=== PATIENT | male | born 1955 | race Caucasian/White ===

== ENCOUNTER 2017-04-27 06:25 | Inpatient (IN) | payer OTHER ==
[2017-04-26 09:21] LABS: CHLORIDE,CL 109 mmol/L (98-110); SODIUM,NA 141 mmol/L (136-146)
[2017-04-27] MEDS ORDERED: ceFAZolin 1 GM in Premix Bag 1 BAG IV ONE (07:00)
[2017-04-27] MEDS ORDERED: Lactated Ringers 1,000 ML IV SCH (07:00)
[2017-04-27] MEDS ORDERED: Gentamicin 40 MG/ML 2 ML Vial ONE (07:22)
[2017-04-27] MEDS ORDERED: Lidocaine 2% 5 ML SDV ONE (07:34)
[2017-04-27] MEDS ORDERED: Propofol 200 MG/20 ML SDV ONE ×3 (07:34→10:30)
[2017-04-27] MEDS ORDERED: fentaNYL 100 MCG/2 ML SDV ONE ×2 (07:34→09:44)
[2017-04-27] MEDS ORDERED: Midazolam 1 MG/ML 2 ML SDV ONE (07:34)
[2017-04-27] MEDS ORDERED: Morphine PF 10 MG/10 ML SDV ONE (07:40)
[2017-04-27] MEDS ORDERED: ePHEDrine 50 MG/ML SDV ONE (07:40)
[2017-04-27] MEDS ORDERED: Neostigmine Methylsulfate 1 MG/ML 5 ML Syringe ONE (07:44)
[2017-04-27] MEDS ORDERED: Ondansetron 4 MG/2 ML SDV ONE (07:44)
[2017-04-27] MEDS ORDERED: Rocuronium 10 MG/ML 10 ML Syringe ONE (07:44)
--- NOTE | 2017-04-27 08:07 | PCM.PREANE ---
Preanesthetic Assessment - Procedure Proposed Procedure: Radical prostatectomy - Anesthesia/Transfusion/Family Hx Anesthesia History: Prior Anesthesia Without Reaction Transfusion History: No Prior Transfusion(s) Intubation History: Unknown Additional History: Hemicolectomy in [place] last year with tumor removal.No problems with anesthetic. - Review of Systems General: No Symptoms Pulmonary: Other (smoker) Cardiovascular: No Symptoms Gastrointestinal: Other (abdominal surgery last year; occasional acid stomach since.) Neurological: No Symptoms Other: Reports: None - Physical Assessment NPO Status Date: 04/26/17 NPO Status Time: 23:00 O2 Sat by Pulse Oximetry: 97 Respiratory Rate: 16 Vital Signs: Last Vital Signs Temp 97.7 F 04/27/17 07:00 Pulse 87 04/27/17 07:00 Resp 16 04/27/17 07:00 BP 127/62 04/27/17 07:00 Pulse Ox 97 04/27/17 07:00 Height: 6 ft Weight: 176 lb ASA Class: 2 Mental Status: Alert & Oriented x3 Airway Class: Mallampati = 1 Dentition: Reports: Normal Dentition Thyro-Mental Finger Breadths: 3 Mouth Opening Finger Breadths: 3 ROM/Head Extension: Full Lungs: Clear to Auscultation, Normal Respiratory Effort Cardiovascular: Regular Rate, Regular Rhythm, No Murmurs - Lab Values: Laboratory Last Values WBC 5.56 K/uL (4.0-11.0) 04/26/17 08:40 RBC 4.21 M/uL (4.50-5.90) L 04/26/17 08:40 Hgb 13.6 g/dL (13.0-17.0) 04/26/17 08:40 Hct 39.8 % (38.0-50.0) 04/26/17 08:40 MCV 94.5 fL (80.0-98.0) 04/26/17 08:40 MCH 32.3 pg (27.0-32.0) H 04/26/17 08:40 MCHC 34.2 g/dL (31.0-37.0) 04/26/17 08:40 RDW Std Deviation 45.0 fl (28.0-62.0) 04/26/17 08:40 RDW Coeff of Clint 13 % (11.0-15.0) 04/26/17 08:40 Plt Count 426 K/uL (150-400) H 04/26/17 08:40 MPV 8.90 fL (7.40-12.00) 04/26/17 08:40 Neut % (Auto) 61.3 % (48.0-80.0) 04/26/17 08:40 Lymph % (Auto) 26.1 % (16.0-40.0) 04/26/17 08:40 Towns % (Auto) 9.7 % (0.0-15.0) 04/26/17 08:40 Eos % (Auto) 2.5 % (0.0-7.0) 04/26/17 08:40 Baso % (Auto) 0.4 % (0.0-1.5) 04/26/17 08:40 Neut # (Auto) 3.4 K/uL (1.4-5.7) 04/26/17 08:40 Lymph # (Auto) 1.5 K/uL (0.6-2.4) 04/26/17 08:40 Towns # (Auto) 0.5 K/uL (0.0-0.8) 04/26/17 08:40 Eos # (Auto) 0.1 K/uL (0.0-0.7) 04/26/17 08:40 Baso # (Auto) 0.0 K/uL (0.0-0.1) 04/26/17 08:40 Nucleated RBC % 0.0 /100WBC 04/26/17 08:40 Nucleated RBCs # 0 K/uL 04/26/17 08:40 Sodium 141 mmol/L (136-146) 04/26/17 08:40 Potassium 3.5 mmol/L (3.5-5.1) 04/26/17 08:40 Chloride 109 mmol/L (98-110) 04/26/17 08:40 Carbon Dioxide 24 mmol/L (21-31) 04/26/17 08:40 BUN 11 mg/dL (6.0-23.0) 04/26/17 08:40 Creatinine 0.8 mg/dL (0.6-1.5) 04/26/17 08:40 Est Cr Clr Drug Dosing 103.74 mL/min 04/26/17 08:40 Estimated GFR (MDRD) > 60.0 ml/min 04/26/17 08:40 Glucose 113 mg/dL (60-110) H 04/26/17 08:40 Calcium 8.9 mg/dL (8.8-10.8) 04/26/17 08:40 Total Bilirubin 0.3 mg/dL (0.1-1.5) 04/26/17 08:40 AST 19 IU/L (5-40) 04/26/17 08:40 ALT 20 IU/L (8-54) 04/26/17 08:40 Alkaline Phosphatase 78 (40-150) 04/26/17 08:40 Total Protein 6.8 g/dL (6.0-8.0) 04/26/17 08:40 Albumin 4.1 g/dL (3.4-4.8) 04/26/17 08:40 Globulin 2.7 g/dL (2.0-3.5) 04/26/17 08:40 Albumin/Globulin Ratio 1.5 (1.3-2.8) 04/26/17 08:40 Blood Type O POSITIVE 04/26/17 08:40 Antibody Screen NEGATIVE 04/26/17 08:40 Crossmatch See Detail 04/26/17 08:40 - Allergies Allergies/Adverse Reactions: Allergies Allergy/AdvReac Type Severity Reaction Status Date / Time pollen extracts Allergy Cannot Verified 04/22/17 13:52 Remember - Blood Blood Available: Yes Product(s) Available: PRBC (4u) - Anesthesia Plan Pre-Op Medication Ordered: None - Acknowledgements Anesthesia Type Planned: General Anesthesia (probable OET), Spinal Pt an Appropriate Candidate for the Planned Anesthesia: Yes Alternatives and Risks of Anesthesia Discussed w Pt/Guardian: Yes Pt/Guardian Understands and Agrees with Anesthesia Plan: Yes PreAnesthesia Questionnaire HEENT History: Reports: Allergic Rhinitis, Hard of Hearing Other HEENT History: has hearing loss and "buzzing" right ear Gastrointestinal History: Reports: GERD Musculoskeletal History: Reports: Other (See Below) Other Musculoskeletal History: 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 Oncologic (Cancer) History: Reports: Colon Other Dermatologic History: had skin lesion removed, was benign - Past Surgical History Head Surgeries/Procedures: Reports: None HEENT Surgical History: Reports: None GI Surgical History: Reports: Other (See Below) Other GI Surgeries/Procedures: 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 Other Female Surgeries/Procedures: current prostate cancer Male Surgical History: Reports: Other (See Below) Musculoskeletal Surgical History: Reports: None - SUBSTANCE USE Smoking Status *Q: Current Some Day Smoker Tobacco Use Within Last Twelve Months: Cigarettes Recreational Drug Use History: No - HOME MEDS Home Medications: Home Meds Ammonium Lactate [Amlactin] 1 dose TOP BID PRN 04/22/17 [History] L Gasseri/B Bifidum/B Longum [[facility] Capsule] 1 cap PO DAILY PRN 04/22/17 [History] - CURRENT (IN HOUSE) MEDS Current Meds: Current Medications Lactated Ringer's (Ringers, Lactated) 1,000 mls @ 200 mls/hr IV ASDIRECTED FRANCISCO Discontinued Medications Ephedrine Sulfate (Ephedrine Sulfate) Confirm Administered Dose 100 mg .ROUTE .STK-MED ONE Stop: 04/27/17 07:41 Fentanyl (Sublimaze) Confirm Administered Dose 300 mcg .ROUTE .STK-MED ONE Stop: 04/27/17 07:35 Gentamicin Sulfate (Gentamicin) Confirm Administered Dose 80 mg .ROUTE .STK-MED ONE Stop: 04/27/17 07:23 Glycopyrrolate () Confirm Administered Dose 1 mg .ROUTE .STK-MED ONE Stop: 04/27/17 07:45 Cefazolin Sodium/Dextrose 1 gm (/ Premix) 50 mls @ 100 mls/hr IV ONCALL ONE Stop: 04/27/17 07:29 Cefazolin Sodium/Dextrose (Ancef) Confirm Administered Dose 50 mls @ as directed .ROUTE .STK-MED ONE Stop: 04/27/17 07:31 Lidocaine (Xylocaine-Mpf 2%) Confirm Administered Dose 10 ml .ROUTE .STK-MED ONE Stop: 04/27/17 07:35 Midazolam HCl (Versed 1 Mg/Ml) Confirm Administered Dose 2 mg .ROUTE .STK-MED ONE Stop: 04/27/17 07:35 Morphine Sulfate (Duramorph Pf) Confirm Administered Dose 10 mg .ROUTE .STK-MED ONE Stop: 04/27/17 07:41 Neostigmine Methylsulfate (Neostigmine) Confirm Administered Dose 5 mg .ROUTE .STK-MED ONE Stop: 04/27/17 07:45 Ondansetron HCl (Zofran) Confirm Administered Dose 4 mg .ROUTE .STK-MED ONE Stop: 04/27/17 07:45 Propofol (Diprivan 20 Ml) Confirm Administered Dose 400 mg .ROUTE .STK-MED ONE Stop: 04/27/17 07:35 Rocuronium [place] (Zemuron) Confirm Administered Dose 100 mg .ROUTE .STK-MED ONE Stop: 04/27/17 07:45
[2017-04-27] MEDS ORDERED: fentaNYL 100 MCG/2 ML SDV IVPUSH PRN (09:24)
[2017-04-27] MEDS ORDERED: HYDROmorphone 2 MG/ML Syringe IVPUSH ONE (09:24)
[2017-04-27] MEDS ORDERED: ceFAZolin 1 GM in Premix Bag 1 BAG IV SCH ×2 (11:30→15:30)
--- NOTE | 2017-04-27 12:02 | OR ---
SURGEON: Jacqueline Faustin M.D. DATE OF PROCEDURE: 04/27/2017 PREOPERATIVE DIAGNOSIS: Adenocarcinoma of the prostate. POSTOPERATIVE DIAGNOSIS: Adenocarcinoma of the prostate. OPERATION: Radical retropubic prostatectomy including bilateral pelvic lymph node dissection. STRIPPING CUTTER AND WINDER: Dr. Mina. ESTIMATED BLOOD LOSS: 500 mL. DESCRIPTION OF PROCEDURE: The patient was given general anesthesia, placed in a supine position. The anterior abdominal wall and external genital area were all prepped and draped in sterile drapes. A catheter was placed in the bladder. The table was flexed approximately 15 degrees. A lower midline incision was made and carried through the fascia into the retropubic space. The obturator lymph nodes and external iliac lymph nodes on the left side were removed. The obturator lymph nodes on the right side were removed. The endopelvic fascia was incised. Puboprostatic ligaments were taken down. A #1 chromic suture was used to control the venous plexus in front of the membranous urethra. The dissection was then continued the apex of the prostate from the membranous urethra of the sphincter going behind the prostate that from the anterior wall of the rectum. Blood supply to the prostate was taken down on both sides. Seminal vesicles were dissected and included in the specimen. The vas deferens was transected and the proximal end was clipped. The proximal dissection was then carried out the prostate from the neck of the bladder. Both the proximal and distal margins were sent for frozen. The neck of the bladder was then sutured to the membranous urethra using 2-0 chromic interrupted sutures at the 6, 8, 10, and 4, 2, and 12 o'clock positions. Two large [place] drains were left in and brought to the outside through a separate stab wound incisions on both sides of the main incision. The wound was closed using Maxon suture for the fascia #1. The subcutaneous tissue was reapproximated with 3-0 chromic. Skin was closed with syeda. The drains were secured in place with 2-0 silk. The patient tolerated the procedure well and was moved to recovery room in good condition. GUS / HERMINIO /[id number]
--- NOTE | 2017-04-27 12:25 | PCM.POSTAN ---
POST ANESTHESIA ASSESSMENT - MENTAL STATUS Mental Status: Alert, Oriented - RESPIRATORY Respiratory Status: Respiratory Rate WNL, Airway Patent, O2 Saturation Stable - CARDIOVASCULAR CV Status: Pulse Rate WNL, Blood Pressure Stable - GASTROINTESTINAL GI Status: No Symptoms - PAIN Pain Score: 0 (still with sensory blockade) - POST OP HYDRATION Hydration Status: Adequate & Stable
[2017-04-27] MEDS: Albumin 5% 250 ML IV SCH ×2 (12:45→18:29)
[2017-04-27] MEDS: Lactated Ringers 1,000 ML IV SCH ×2 (12:45→21:28)
[2017-04-27] MEDS ORDERED: Benzocaine/Cetylpyridinium/Menthol Lozenge MUCMEM PRN (14:44)
[2017-04-27] MEDS: ceFAZolin 1 GM in Premix Bag 1 BAG IV SCH (16:36)
[2017-04-28] MEDS: ceFAZolin 1 GM in Premix Bag 1 BAG IV SCH ×4 (00:10→23:10)
[2017-04-28 05:26] LABS: CHLORIDE,CL 106 mmol/L (98-110); SODIUM,NA 138 mmol/L (136-146)
[2017-04-28] MEDS: Lactated Ringers 1,000 ML IV SCH ×2 (05:39→17:48)
[2017-04-28] MEDS: Enoxaparin 40 MG/0.4 ML Syringe SUBCUT SCH (08:44)
[2017-04-28] MEDS ORDERED: Enoxaparin 100 MG/1 ML Syringe SUBCUT SCH (09:00)
[2017-04-28] MEDS ORDERED: Carboxymethylcellulose Sodium 0.5% Ophth Soln 0.4 ML UD Box of 30 EYEBOTH PRN (09:35)
[2017-04-28] MEDS: Acetaminophen/HYDROcodone 325-5 MG Tab PO PRN ×2 (13:09→23:01)
[2017-04-29] MEDS: Lactated Ringers 1,000 ML IV SCH (07:51)
[2017-04-29] MEDS: ceFAZolin 1 GM in Premix Bag 1 BAG IV SCH ×3 (08:13→23:55)
[2017-04-29] MEDS: Acetaminophen/HYDROcodone 325-5 MG Tab PO PRN (08:26)
[2017-04-29] MEDS: Enoxaparin 40 MG/0.4 ML Syringe SUBCUT SCH (08:27)
--- NOTE | 2017-04-29 09:53 | PCM.SN ---
- Free Text/Narrative Note: 04/28 Pt is doing well stable larger than usual abhilash drainage good urine output 04/29 remains stable plan to send home tomorrow
--- NOTE | 2017-04-29 15:27 | PCM48HPAN ---
Post Anesthesia Note - EVALUATION WITHIN 48HRS OF ANESTHETIC Vital Signs in Normal Range: Yes Patient Participated in Evaluation: Yes Respiratory Function Stable: Yes Airway Patent: Yes Cardiovascular Function Stable: Yes Hydration Status Stable: Yes Pain Control Satisfactory: Yes Nausea and Vomiting Control Satisfactory: Yes Mental Status Recovered: Yes
[2017-04-30 07:29] VITALS: BP 103/58
[2017-04-30] MEDS: ceFAZolin 1 GM in Premix Bag 1 BAG IV SCH (08:19)
[2017-04-30] MEDS: Enoxaparin 40 MG/0.4 ML Syringe SUBCUT SCH (08:41)
--- NOTE | 2017-05-01 03:40 | DISCH ---
DATE OF DISCHARGE: 04/30/2017 PRIMARY CARE PHYSICIAN: Ariel Joaquin He was admitted to the hospital and had radical retropubic prostatectomy for prostate malignancy. That was done 3 days ago. Postoperatively, he did very well and the postoperative course was uneventful. Initially, he had increased drainage from one of the Pascual drains by this third postop day that subsided to a minimal amount. At the time of discharge, he is afebrile. His vital signs are normal. The wound looks good. The urine is clear. His hemoglobin was 9.5, down from 13. However, the blood loss was only 500 mL, so I suspect some of that is some extra IV fluids that he received. He is sent home on Keflex 1 three times a day for the next 5 days, Lorcet 5/325 for pain. I will be seeing him in 4 days to remove the [place] drains and syeda. GUS / HERMINIO /[id number]
== END 2017-04-30 10:45 | disposition home or self-care (01) | DRG 708 ==
LOC: MW.ICU 06:25 → MW.MS 04-28 19:45
PROVIDERS: ADMIT Urology; ATTEND Urology
PROC: 0VT00ZZ Resection of Prostate, Open Approach (ICD-10-PCS; principal; 2017-04-27)
PROC: 07TC0ZZ Resection of Pelvis Lymphatic, Open Approach (ICD-10-PCS; 2017-04-27)
DX: C61 Malignant neoplasm of prostate (principal); E78.5 Hyperlipidemia, unspecified; F17.200 Nicotine dependence, unspecified, uncomplicated
CPT/HCPCS: 00865; 36415; 80048; 80053; 85025; 86850; 86900; 86901; 86920; 86921; 86922; 88307; 88309; 88331; 88332; A9270-GY; J0690; J1580; J1650; J2250; J2270; J2405; J2704; J3010; J7120